=== PATIENT | female | born 1980 | race Caucasian/White ===

== ENCOUNTER → 2024-01-31 | Outpatient (CLI) | payer OTHER ==
--- NOTE | 2024-02-03 14:32 | MM ---
Reason for Exam: Screening (asymptomatic). Last mammogram was performed 7 year(s) and 8 month(s) ago. Patient History: Menarche at age 11. Patient has no children. Right ovary removed at age 26. Hormonal Contraceptives for 3 months. Last menstrual period: 01/13/2024 Risk Values: Lesly 5 year model risk: 0.9%. NCI Lifetime model risk: 10.6%. Prior Study Comparison: 05/08/2016 Bilateral Screening Mammogram, [facility]. Tissue Density: The breasts are extremely dense, which lowers the sensitivity of mammography. Findings: Analyzed By CAD. The pattern is symmetrical. Pattern is stable. Scattered benign punctate calcifications are bilateral. Calcifications appear to be increasing over the interval. Some of these calcifications appear grouped. Additional workup with magnification views is recommended. Overall Assessment: Incomplete: need additional imaging evaluation, BI-RAD 0 Management: Diagnostic Mammogram of both breasts. A negative mammogram report should not preclude additional follow up of suspicious palpable abnormalities. Patient should continue monthly self breast exam. A clinical breast exam by your physician is recommended on an annual basis and results should be correlated with mammographic findings. Electronically signed and approved by: Arturo Bell D.O. Radiologis
== END | disposition home or self-care (01) ==
LOC: RADMAMWWP 14:16
PROVIDERS: ATTEND Family Medicine
DX: Z12.31 Encounter for screening mammogram for malignant neoplasm of breast (principal)
CPT/HCPCS: 77063; 77067

== ENCOUNTER → 2024-02-11 | Outpatient (CLI) | payer OTHER ==
--- NOTE | 2024-02-14 08:05 | MM ---
Reason for Exam: Additional evaluation requested from abnormal screening. Last screening mammogram was performed less than 1 month ago. Patient History: Menarche at age 11. Patient has no children. Right ovary removed at age 26. Hormonal Contraceptives for 3 months. Risk Values: Lesly 5 year model risk: 0.9%. NCI Lifetime model risk: 10.6%. Tissue Density: The breasts are heterogeneously dense, which may obscure small masses. Findings: Analyzed By CAD. Scattered benign calcifications are stable. No evidence for mass or distortion. Overall Assessment: Benign, BI-RAD 2 Management: Screening Mammogram of both breasts in 1 year. . Results were given to the patient verbally at the time of exam. Patient should continue monthly self-breast exams. A clinical breast exam by your physician is recommended on an annual basis. This exam should not preclude additional follow-up of suspicious palpable abnormalities. Note on Lesly scores and lifetime risk: 1. A Lesly score greater than 3% is considered moderate risk. If this is the case, consider specialist referral to assess eligibility for a risk reducing agent. 2. If overall lifetime risk for the development of breast cancer is 20% or higher, the patient may qualify for future screening with alternating mammogram and breast MRI. Electronically signed and approved by: Artie Lopez M.D. Radiologis
== END | disposition home or self-care (01) ==
LOC: RADMAMWWP 10:22
PROVIDERS: ATTEND Family Medicine
DX: R92.333 Mammographic heterogeneous density, bilateral breasts (principal); R92.1 Mammographic calcification found on diagnostic imaging of breast
CPT/HCPCS: 77062; 77066

== ENCOUNTER → 2025-02-19 | Outpatient (CLI) | payer OTHER ==
--- NOTE | 2025-02-19 11:16 | MM ---
Reason for Exam: Additional evaluation requested from prior study. Last screening mammogram was performed 12 month(s) ago. Patient History: Menarche at age 11. Patient has no children. Right ovary removed at age 26. Hormonal Contraceptives for 3 months. Last menstrual period: 01/30/2025 Risk Values: Lesly 5 year model risk: 0.9%. NCI Lifetime model risk: 10.5%. Prior Study Comparison: 05/08/2016 Bilateral Screening Mammogram, [facility]. 01/31/2024 Bilateral MG 3D screening mammo w/cad, [facility]. 02/11/2024 Bilateral MG 3D diag mammo w/cad [facility], [facility]. Tissue Density: The breasts are extremely dense, which lowers the sensitivity of mammography. Findings: Analyzed By CAD. There are tiny benign-appearing round calcifications scattered throughout the right breast redemonstrated. Benign-appearing bilateral axillary lymph nodes are seen. No suspicious new mass or distortion in either breast. Overall Assessment: Benign, BI-RAD 2 Management: Screening Mammogram of both breasts in 1 year. Return to routine follow-up. Results were given to the patient verbally at the time of exam. Patient should continue monthly self-breast exams. A clinical breast exam by your physician is recommended on an annual basis. This exam should not preclude additional follow-up of suspicious palpable abnormalities. Note on Lesly scores and lifetime risk: 1. A Lesly score greater than 3% is considered moderate risk. If this is the case, consider specialist referral to assess eligibility for a risk reducing agent. 2. If overall lifetime risk for the development of breast cancer is 20% or higher, the patient may qualify for future screening with alternating mammogram and breast MRI. [facility], , 02/19/2025 11:11 AM. Electronically signed and approved by: Angel Olguin M.D.
== END | disposition home or self-care (01) ==
LOC: RADMAMWWP 10:45
PROVIDERS: ATTEND Family Medicine
DX: R92.8 Other abnormal and inconclusive findings on diagnostic imaging of breast (principal); R92.343 Mammographic extreme density, bilateral breasts; R92.1 Mammographic calcification found on diagnostic imaging of breast; Z92.0 Personal history of contraception
CPT/HCPCS: 77062; 77066

== ENCOUNTER → 2025-02-22 | Outpatient (CLI) | payer OTHER ==
--- NOTE | 2025-02-22 12:18 | MR ---
EXAMINATION TYPE: MR tspine/lspine wo con DATE OF EXAM: 02/22/2025 10:14 AM COMPARISON: None. CLINICAL INDICATION: Female, 44 years old with history of M54.16 RADICULOPATHY, LUMBAR REGION; M54.14 RADICU, mid and low back pain that radiates down into right thigh TECHNIQUE: Multiplanar, multisequence imaging of the thoracic and lumbar spine is performed without I V contrast. 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 Incidentally, there is a posterior disc herniation at C5-C6 with annular fissure that mildly narrows the spinal canal abutting the ventral cord but without any cord compression. Mild intervertebral disc desiccation variably directed the mid and upper thoracic spine. No large foc al disc herniation or spinal canal stenosis. Normal course, caliber, and signal intensity of the thoracic spinal cord. Mild facet arthropathy towa rds the right in the upper thoracic spine. Vertebral body heights are preserved and alignment is maintained. No prevertebral or paravertebral soft tissue abnormalities seen. LUMBAR SPINE: Mild scattered heterogeneous marrow signal. Diffuse scattered fatty matrix hemangiomas are demonstrat ed. Conus medullaris is normal. Vertebral body heights are preserved and alignment is maintained. Mild intervertebral disc desiccation and mild disc bulging throughout. No large focal disc herniation or significant spinal canal stenosis. Mild facet arthropathy lower lumbar spine. On the right, there is minimal inferior neural foraminal narrowing at L3-L4 with disc material possib ly abutting the exiting right L3 nerve root. On the left, mild neuroforaminal narrowing at L4/L5 due to disc bulge with possible abutment of the e xiting L4 nerve root. No prevertebral or paravertebral soft tissue abnormalities seen. COMBINED IMPRESSION: THORACIC SPINE: 1. 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 2. No vertebral compression collapse or malalignment. 3. Mild facet arthropathy especially towards the right in the upper thoracic spine. Mild early interv ertebral disc desiccation scattered throughout the upper and mid thoracic spine. No focal disc hernia tion or significant spinal canal stenosis. 4. However, incidentally, we note a disc herniation at C5-C6 containing an annular fissure and mildly narrowing the spinal canal. LUMBAR SPINE: 5. Mild early degenerative disc disease mid and lower lumbar spine. No large focal disc herniation or significant spinal canal stenosis. 6. No vertebral compression collapse or malalignment. 7. The bulging discs contribute to mild neural foraminal stenosis on the right at L3-L4 and on the le ft at L4-L5. Possible abutment of the corresponding exiting nerve roots at these levels. [facility], , 02/22/2025 12:15 PM
== END | disposition home or self-care (01) ==
LOC: RADMRIMAIN 08:32
PROVIDERS: ATTEND Family Medicine
DX: M51.16 Intervertebral disc disorders with radiculopathy, lumbar region (principal); M99.73 Connective tissue and disc stenosis of intervertebral foramina of lumbar region; M47.24 Other spondylosis with radiculopathy, thoracic region
CPT/HCPCS: 72146; 72148

== ENCOUNTER → 2025-03-05 | Outpatient (CLI) | payer OTHER ==
[2025-03-06 00:29] LABS: Cryptosporidium Antigen Negative (Negative)
== END | disposition home or self-care (01) ==
LOC: LABWHC1 09:34
PROVIDERS: ATTEND Physician Assistant Medical
DX: R19.7 Diarrhea, unspecified (principal)
CPT/HCPCS: 87328; 87329